=== PATIENT | male | born 1960 | race Caucasian/White ===

== ENCOUNTER → 2019-03-06 08:51 | Outpatient (CLI) | payer OTHER, MEDICAID ==
--- NOTE | 2019-03-06 15:10 | NUR ---
PT HAS METAL ON PD CATHETER. UNABLE TO GET INFORMATION ON IT. CANCEL MRI PER HOMA NELSON WHO SPOKE WITH DR PEACE
== END | disposition home or self-care (01) ==
LOC: D.RAD 08:51
PROVIDERS: ATTEND Legal Medicine
DX: Z01.812 Encounter for preprocedural laboratory examination (principal)

== ENCOUNTER → 2019-03-22 10:37 | Outpatient (CLI) | payer OTHER, MEDICAID | END | disposition home or self-care (01) | LOC: D.SP 10:37 → D.RAD 13:00 | PROVIDERS: ATTEND Legal Medicine | DX: E04.1 Nontoxic single thyroid nodule (principal); Z53.29 Procedure and treatment not carried out because of patient's decision for other reasons; Z01.812 Encounter for preprocedural laboratory examination ==

== ENCOUNTER 2019-06-01 07:09 | Outpatient (CLI) | payer OTHER, MEDICAID ==
--- NOTE | 2019-06-01 08:04 | NUR ---
0755 PT ARRIVED TO ROOM 2518 FOR THYROID BIOPSY. DOES NOT WANT TO GET ON STRETCHER. PT DID PUT GOWN ON. PT REFUSES TO HAVE BLOOD DRAWN OR TO HAVE AN IV STARTED. PT NON-VERBAL BUT WILL NOD HIS HEAD TO YES AND NO QUESTIONS. WHEN ASKED IF HE WILL ALLOW US TO TAKE CARE OF HIM, DRAW HIS BLOOD, START IV, HAVE THYROID BIOPSY, HE NODDED NO TO EACH QUESTION. HE WHISPERED HIS AGE WHEN ASKED. SPOKE WITH KWASI STAPLES RN ABOUT PT REFUSING CARE. SHE SPOKE WITH DR BOO AND STATES THAT PROCEDURE IS CANCELLED DUE TO PT BEING UNCOOPERATIVE. WILL CALL DR. ZUNIGA ABOUT PROCEDURE BEING CANCELLED BY RADIOLOGIST. VS WERE T-97.5 B/P 125/81 HR-71 R-16 O2 SAT-99%
== END 2019-06-01 08:03 | disposition home or self-care (01) ==
LOC: D.CT 07:09 → D.US 07:09 → D.CT 08:03 → D.US 09:00
PROVIDERS: ATTEND Legal Medicine
DX: E04.1 Nontoxic single thyroid nodule (principal)